=== PATIENT | male | born 1945 | race Caucasian/White ===

== ENCOUNTER 2017-04-05 21:52 | Inpatient (IN) | payer OTHER ==
[~2017-04-05] VITALS: Ht 175.3 cm; Wt 93.7 kg
[~2017-04-05 21:52] MED LIST: ASPIRIN81 M2 PO; FEOSOL325 MG PO; HYDROCODON-ACE1 EAC8 PO; LISINOPRIL-HCT1 EAC3 PO; LOVASTATIN40 MG PO; MOTRIN800 MG PO; MULTIPLE VITAM1 EAC1 PO
[2017-04-06 05:54] VITALS: BP 180/94
[2017-04-06 06:38] LABS: Estimated Average Glucose 114 mg/dL (70-123); HEMOGLOBIN A1c (GLYCOHEMOGLOB) 5.6 % HGB (Below 5.7)
[2017-04-06 06:42] LABS: ANION GAP 9 MEQ/L (2-14); CHLORIDE 103 MEQ/L (99-109); POTASSIUM 4.1 MEQ/L (3.7-5.4); SAMPLE HEMOLYSIS CHECK 0; SAMPLE ICTERIC CHECK 0; SAMPLE LIPEMIA CHECK 0; SODIUM 139 MEQ/L (136-147); TOTAL BILIRUBIN 0.7 MG/DL (0.0-1.0)
[2017-04-06 06:47] LABS: ALKALINE PHOSPHATASE 44 IU/L (3-129); GFR ESTIMATE (CALCULATED) > 59 mL/min/; GLUCOSE 114 mg/dL (70-99); UREA NITROGEN (BUN) 19 mg/dL (9-23)
[2017-04-06 11:55] VITALS: BP 150/81
[2017-04-06 15:42] VITALS: BP 129/73
[2017-04-06 18:01] VITALS: BP 136/79
[2017-04-06 20:26] VITALS: BP 132/78
[2017-04-07] VITALS (8 sets, daily range): BP systolic 100–180; BP diastolic 58–95
[2017-04-07 10:07] LABS: HEMATOCRIT 36.6 % (38.0-50.0); MCV 101.9 FL (86-99)
[2017-04-07 18:30] LABS: HEMATOCRIT 35.3 % (38.0-50.0); MCH 33.7 PG (29.0-34.0); MCHC 33.7 G/DL (30.0-36.0); MEAN PLAT.VOLUME 10.5 uM^3 (9.0-12.4); RBC DIS.WIDTH-CV 12.6 % (11.8-14.6); RBC DIS.WIDTH-SD 46.4 % (39-53); WHITE BLOOD COUNT 8.9 K/uL (4.1-10.2)
[2017-04-07 18:35] LABS: PLATELET COUNT 141 K/uL (156-360); RED BLOOD COUNT 3.53 M/uL (4.00-5.50)
[2017-04-07 18:47] LABS: ALKALINE PHOSPHATASE 33 IU/L (3-129); ANION GAP 8 MEQ/L (2-14); CHLORIDE 103 MEQ/L (99-109); GFR ESTIMATE (CALCULATED) > 59 mL/min/; GLUCOSE 112 mg/dL (70-99); MAGNESIUM 1.5 mg/dl (1.3-2.7); SAMPLE HEMOLYSIS CHECK 0; SAMPLE ICTERIC CHECK 0; SAMPLE LIPEMIA CHECK 0; SODIUM 134 MEQ/L (136-147); TOTAL BILIRUBIN 0.6 MG/DL (0.0-1.0); UREA NITROGEN (BUN) 17 mg/dL (9-23)
[2017-04-08 05:04] VITALS: BP 153/79
[2017-04-08 05:30] LABS: HEMATOCRIT 33.7 % (38.0-50.0); MCH 33.5 PG (29.0-34.0); MCHC 33.8 G/DL (30.0-36.0); MCV 99.1 FL (86-99); MEAN PLAT.VOLUME 10.6 uM^3 (9.0-12.4); PLATELET COUNT 139 K/uL (156-360); RBC DIS.WIDTH-CV 12.4 % (11.8-14.6); RBC DIS.WIDTH-SD 45.5 % (39-53); WHITE BLOOD COUNT 8.8 K/uL (4.1-10.2)
[2017-04-08 06:02] LABS: ALKALINE PHOSPHATASE 31 IU/L (3-129); ANION GAP 11 MEQ/L (2-14); CHLORIDE 103 MEQ/L (99-109); GFR ESTIMATE (CALCULATED) > 59 mL/min/; GLUCOSE 118 mg/dL (70-99); SAMPLE HEMOLYSIS CHECK 0; SAMPLE ICTERIC CHECK 0; SAMPLE LIPEMIA CHECK 0; SODIUM 136 MEQ/L (136-147); UREA NITROGEN (BUN) 12 mg/dL (9-23)
[2017-04-08 06:22] LABS: TOTAL BILIRUBIN 0.8 MG/DL (0.0-1.0)
[2017-04-08 07:16] LABS: ADD MIUA? YES; BILIRUBIN NEGATIVE; BLOOD MODERATE; COLOR YELLOW ((YELLOW)); GLUCOSE (STRIP) NEGATIVE; KETONES NEGATIVE; LEUKOCYTES NEGATIVE; NITRITE NEGATIVE; PROTEIN (STRIP) NEGATIVE; SPECIFIC GRAVITY 1.012 (1.000-1.030); UROBILINOGEN 0.2 MG/DL (0.2-1.0)
[2017-04-08 07:23] LABS: BACTERIA NONE SEEN /HPF; EPITHELIAL CELLS NONE SEEN /HPF; MUCUS NONE SEEN /LPF; RED BLOOD CELLS 15-20 /HPF (0-5); UCUL ADDED? NO; WHITE BLOOD CELLS NONE SEEN /HPF (0-5)
[2017-04-08 08:23] VITALS: BP 140/70
[2017-04-08 12:30] VITALS: BP 130/73
[2017-04-08 16:16] VITALS: BP 138/70
[2017-04-08 20:17] VITALS: BP 127/62
[2017-04-08 23:19] VITALS: BP 116/69
[2017-04-09 04:29] VITALS: BP 146/81
[2017-04-09 07:22] VITALS: BP 119/67
[2017-04-09 15:56] VITALS: BP 130/64
[2017-04-09 20:00] VITALS: BP 126/64
[2017-04-09 23:08] VITALS: BP 137/65
[2017-04-10 04:10] VITALS: BP 141/73
[2017-04-10 07:44] VITALS: BP 131/70
[2017-04-10] MEDS ORDERED: TYLENOL REGULA325 MG PO (08:50)
[2017-04-10] MEDS ORDERED: SENNA PLUS TAB1 EACH PO (08:51)
[2017-04-10] MEDS ORDERED: ELIQUIS2.5 MG PO (08:52)
[2017-04-10] MEDS ORDERED: OXYCODONE HCL5 MG PO (08:54)
[2017-04-10 11:44] VITALS: BP 134/90
[2017-04-10 12:48] LABS: POINT-OF-CARE METER ID UU14188577
[2017-04-10 14:07] LABS: HEMATOCRIT 32.6 % (38.0-50.0); MCHC 33.1 G/DL (30.0-36.0); MCV 99.7 FL (86-99); PLATELET COUNT 220 K/uL (156-360); RBC DIS.WIDTH-CV 12.4 % (11.8-14.6); RBC DIS.WIDTH-SD 45.3 % (39-53); RED BLOOD COUNT 3.27 M/uL (4.00-5.50); WHITE BLOOD COUNT 9.8 K/uL (4.1-10.2)
[2017-04-10 14:17] LABS: ANION GAP 11 MEQ/L (2-14); CHLORIDE 102 MEQ/L (99-109); GFR ESTIMATE (CALCULATED) > 59 mL/min/; GLUCOSE 104 mg/dL (70-99); POTASSIUM 4.2 MEQ/L (3.7-5.4); SAMPLE HEMOLYSIS CHECK 0; SAMPLE ICTERIC CHECK 0; SAMPLE LIPEMIA CHECK 0; SODIUM 136 MEQ/L (136-147); UREA NITROGEN (BUN) 27 mg/dL (9-23)
[2017-04-10 15:12] VITALS: BP 139/88
[2017-04-10 20:18] VITALS: BP 140/72
[2017-04-11 00:07] VITALS: BP 130/59
[2017-04-11 07:14] LABS: BASOPHIL COUNT 0.1 K/uL (0-0.1); EOSINOPHIL (%) 0.8 % (0-5); EOSINOPHIL COUNT 0.1 K/uL (0-0.3); HEMATOCRIT 29.9 % (38.0-50.0); IMMATURE GRANULOCYTE (%) 0.3 % (0.0-0.7); INSTRUMENT ABS NEUTROPHIL CT 5.9 K/uL; LYMPHOCYTE COUNT 1.6 K/uL (1.0-2.8); MCH 34.9 PG (29.0-34.0); MCHC 34.1 G/DL (30.0-36.0); MCV 102.4 FL (86-99); MEAN PLAT.VOLUME 10.3 uM^3 (9.0-12.4); MONOCYTE (%) 16.5 % (3-12); MONOCYTE COUNT 1.5 K/uL (0-0.8); NEUTROPHIL (%) 64.9 % (45-76); NEUTROPHIL COUNT 5.9 K/uL (1.8-6.4); PLATELET COUNT 256 K/uL (156-360); RBC DIS.WIDTH-CV 12.7 % (11.8-14.6); RBC DIS.WIDTH-SD 47.7 % (39-53); RED BLOOD COUNT 2.92 M/uL (4.00-5.50); WHITE BLOOD COUNT 9.2 K/uL (4.1-10.2)
[2017-04-11 07:45] VITALS: BP 147/99
[2017-04-11 07:45] LABS: ALKALINE PHOSPHATASE 49 IU/L (3-129); ANION GAP 10 MEQ/L (2-14); CHLORIDE 105 MEQ/L (99-109); GFR ESTIMATE (CALCULATED) > 59 mL/min/; GLUCOSE 115 mg/dL (70-99); POTASSIUM 4.2 MEQ/L (3.7-5.4); SAMPLE HEMOLYSIS CHECK 0; SAMPLE ICTERIC CHECK 0; SAMPLE LIPEMIA CHECK 0; SODIUM 138 MEQ/L (136-147); TOTAL BILIRUBIN 0.8 MG/DL (0.0-1.0); UREA NITROGEN (BUN) 28 mg/dL (9-23)
[2017-04-11 07:46] LABS: MAGNESIUM 2.2 mg/dl (1.3-2.7)
[2017-04-11 17:17] VITALS: BP 138/72
[2017-04-11 23:46] VITALS: BP 118/57
[2017-04-12 06:55] LABS: BASOPHIL COUNT 0.1 K/uL (0-0.1); EOSINOPHIL (%) 0.9 % (0-5); EOSINOPHIL COUNT 0.1 K/uL (0-0.3); HEMATOCRIT 29.9 % (38.0-50.0); IMMATURE GRANULOCYTE (%) 0.3 % (0.0-0.7); INSTRUMENT ABS NEUTROPHIL CT 6.7 K/uL; MCH 32.9 PG (29.0-34.0); MCHC 32.4 G/DL (30.0-36.0); MCV 101.4 FL (86-99); MEAN PLAT.VOLUME 9.8 uM^3 (9.0-12.4); MONOCYTE (%) 11.3 % (3-12); NEUTROPHIL (%) 75.2 % (45-76); NEUTROPHIL COUNT 6.7 K/uL (1.8-6.4); PLATELET COUNT 269 K/uL (156-360); RBC DIS.WIDTH-CV 12.4 % (11.8-14.6); RBC DIS.WIDTH-SD 46.5 % (39-53); RED BLOOD COUNT 2.95 M/uL (4.00-5.50); WHITE BLOOD COUNT 8.9 K/uL (4.1-10.2)
[2017-04-12 07:20] LABS: ALKALINE PHOSPHATASE 50 IU/L (3-129); ANION GAP 11 MEQ/L (2-14); CHLORIDE 108 MEQ/L (99-109); GFR ESTIMATE (CALCULATED) > 59 mL/min/; GLUCOSE 119 mg/dL (70-99); SAMPLE HEMOLYSIS CHECK 0; SAMPLE ICTERIC CHECK 0; SAMPLE LIPEMIA CHECK 0; SODIUM 140 MEQ/L (136-147); TOTAL BILIRUBIN 0.7 MG/DL (0.0-1.0); UREA NITROGEN (BUN) 23 mg/dL (9-23)
[2017-04-12 08:01] VITALS: BP 133/67
[2017-04-12 15:08] VITALS: BP 161/77
[2017-04-12 23:39] VITALS: BP 141/71
[2017-04-13 06:44] LABS: BASOPHIL COUNT 0.1 K/uL (0-0.1); EOSINOPHIL (%) 1.2 % (0-5); EOSINOPHIL COUNT 0.1 K/uL (0-0.3); HEMATOCRIT 29.9 % (38.0-50.0); IMMATURE GRANULOCYTE (%) 0.3 % (0.0-0.7); INSTRUMENT ABS NEUTROPHIL CT 7.2 K/uL; LYMPHOCYTE COUNT 1.3 K/uL (1.0-2.8); MCH 32.8 PG (29.0-34.0); MCHC 32.1 G/DL (30.0-36.0); MEAN PLAT.VOLUME 10.4 uM^3 (9.0-12.4); MONOCYTE (%) 10.7 % (3-12); NEUTROPHIL (%) 73.7 % (45-76); NEUTROPHIL COUNT 7.2 K/uL (1.8-6.4); PLATELET COUNT 341 K/uL (156-360); RBC DIS.WIDTH-CV 12.6 % (11.8-14.6); RBC DIS.WIDTH-SD 47.1 % (39-53); RED BLOOD COUNT 2.93 M/uL (4.00-5.50); WHITE BLOOD COUNT 9.7 K/uL (4.1-10.2)
[2017-04-13 07:14] LABS: ALKALINE PHOSPHATASE 66 IU/L (3-129); ANION GAP 10 MEQ/L (2-14); CHLORIDE 108 MEQ/L (99-109); GFR ESTIMATE (CALCULATED) > 59 mL/min/; GLUCOSE 115 mg/dL (70-99); POTASSIUM 4.3 MEQ/L (3.7-5.4); SAMPLE HEMOLYSIS CHECK 0; SAMPLE ICTERIC CHECK 0; SAMPLE LIPEMIA CHECK 0; SODIUM 141 MEQ/L (136-147); TOTAL BILIRUBIN 0.7 MG/DL (0.0-1.0); UREA NITROGEN (BUN) 19 mg/dL (9-23)
[2017-04-13 08:10] VITALS: BP 148/83
[2017-04-13 10:27] LABS: LIPASE 46 U/L (1.0-51.0)
[2017-04-13 10:54] LABS: INTER. NORMALIZED RATIO 1.5
[2017-04-13 10:55] LABS: PROTHROMBIN TIME 16.9 SEC (10.2-12.9)
[2017-04-13 15:49] VITALS: BP 136/81
[2017-04-13 23:50] VITALS: BP 141/69
[2017-04-14 06:46] LABS: BASOPHIL COUNT 0.1 K/uL (0-0.1); EOSINOPHIL COUNT 0.2 K/uL (0-0.3); HEMATOCRIT 30.7 % (38.0-50.0); IMMATURE GRANULOCYTE (%) 0.4 % (0.0-0.7); INSTRUMENT ABS NEUTROPHIL CT 7.5 K/uL; LYMPHOCYTE COUNT 1.5 K/uL (1.0-2.8); MCH 34.1 PG (29.0-34.0); MCHC 33.6 G/DL (30.0-36.0); MCV 101.7 FL (86-99); MONOCYTE (%) 8.8 % (3-12); MONOCYTE COUNT 0.9 K/uL (0-0.8); NEUTROPHIL (%) 73.7 % (45-76); NEUTROPHIL COUNT 7.5 K/uL (1.8-6.4); PLATELET COUNT 390 K/uL (156-360); RBC DIS.WIDTH-CV 12.7 % (11.8-14.6); RBC DIS.WIDTH-SD 47.6 % (39-53); RED BLOOD COUNT 3.02 M/uL (4.00-5.50); WHITE BLOOD COUNT 10.1 K/uL (4.1-10.2)
[2017-04-14 07:18] LABS: ALKALINE PHOSPHATASE 76 IU/L (3-129); ANION GAP 11 MEQ/L (2-14); CHLORIDE 107 MEQ/L (99-109); GFR ESTIMATE (CALCULATED) > 59 mL/min/; GLUCOSE 116 mg/dL (70-99); IRON 26 MCG/DL (35-150); POTASSIUM 4.3 MEQ/L (3.7-5.4); SAMPLE HEMOLYSIS CHECK 0; SAMPLE ICTERIC CHECK 0; SAMPLE LIPEMIA CHECK 0; SODIUM 141 MEQ/L (136-147); TOTAL BILIRUBIN 0.7 MG/DL (0.0-1.0); UREA NITROGEN (BUN) 26 mg/dL (9-23)
[2017-04-14 07:59] VITALS: BP 139/75
[2017-04-14 11:11] LABS: HBSG INDEX 0.18
[2017-04-14 11:12] LABS: ANTI-HEPATITIS A VIRUS (IGM) Nonreactive; HAV INDEX 0.11; HPCA INDEX 0.11
[2017-04-14 11:13] LABS: ANTI-HEPATITIS B CORE (IGM) Nonreactive; HBC IgM INDEX 0.06
[2017-04-14 16:41] VITALS: BP 150/67
[2017-04-14 23:01] VITALS: BP 122/73
[2017-04-15] VITALS (11 sets, daily range): BP systolic 113–138; BP diastolic 68–85
[2017-04-15 12:20] LABS: BASE EXCESS -0.5 mEq/L (-3 to +3); BICARBONATE 23.1 mEq/L (22-26); CARBOXY HGB 2.3 % (0-5); COMMENTS - BLOOD GASES A+C+; DEVICE NRBM; FI02 100 %; METHEMOGLOBIN 1.6 % (0-1.5); O2 FLOW 15 L/MIN; PCO2 34 mm Hg (35-45); PO2 269 mm Hg (80-100); SITE RR; TOTAL RESP RATE 24 resp/min; pH 7.44 (7.35-7.45)
[2017-04-15 12:26] LABS: HEMATOCRIT 34.1 % (38.0-50.0); MCH 32.7 PG (29.0-34.0); MCHC 32.3 G/DL (30.0-36.0); MCV 101.5 FL (86-99); MEAN PLAT.VOLUME 9.7 uM^3 (9.0-12.4); PLATELET COUNT 489 K/uL (156-360); RBC DIS.WIDTH-CV 12.7 % (11.8-14.6); RBC DIS.WIDTH-SD 47.5 % (39-53); RED BLOOD COUNT 3.36 M/uL (4.00-5.50); WHITE BLOOD COUNT 12.5 K/uL (4.1-10.2)
[2017-04-15 12:43] LABS: CHLORIDE 111 mEq/L (99-109); POTASSIUM 4.6 mEq/L (3.7-5.4); SODIUM 144 mEq/L (136-147)
[2017-04-15 12:45] LABS: GLUCOSE 131 mg/dL (70-99)
[2017-04-15 12:46] LABS: ANION GAP 11 MEQ/L (2-14)
[2017-04-15 12:49] LABS: GFR ESTIMATE (CALCULATED) > 59 mL/min/
[2017-04-15 12:50] LABS: UREA NITROGEN (BUN) 30 mg/dL (9-23)
[2017-04-15 12:51] LABS: TROP-I INTERPRETATION NEGATIVE; TROPONIN-I 0.09 ng/mL (0.0-0.30)
[2017-04-15 14:43] LABS: METH RESISTANT S AUREUS PCR NEGATIVE (NEGATIVE)
[2017-04-15 15:03] LABS: PROBE CHECK PASS; SPECIMEN PROCESSING CONTROL PASS
[2017-04-15 16:21] LABS: ADD MIUA? YES; BILIRUBIN NEGATIVE; BLOOD MODERATE; COLOR YELLOW ((YELLOW)); GLUCOSE (STRIP) NEGATIVE; KETONES NEGATIVE; LEUKOCYTES NEGATIVE; NITRITE NEGATIVE; PROTEIN (STRIP) NEGATIVE; SPECIFIC GRAVITY 1.025 (1.000-1.030); UROBILINOGEN 0.2 MG/DL (0.2-1.0)
[2017-04-15 16:28] LABS: BACTERIA NONE SEEN /HPF; EPITHELIAL CELLS NONE SEEN /HPF; MUCUS TRACE /LPF; UCUL ADDED? NO; WHITE BLOOD CELLS 0-5 /HPF (0-5)
[2017-04-16] VITALS (18 sets, daily range): BP systolic 108–154; BP diastolic 67–92
[2017-04-16 05:25] LABS: EOSINOPHIL (%) 0 % (0-5); HEMATOCRIT 32.5 % (38.0-50.0); IMMATURE GRANULOCYTE (%) 0.6 % (0.0-0.7); IMMATURE GRANULOCYTE COUNT 0.1 K/uL; INSTRUMENT ABS NEUTROPHIL CT 9.4 K/uL; LYMPHOCYTE COUNT 0.9 K/uL (1.0-2.8); MCH 32.6 PG (29.0-34.0); MCHC 31.4 G/DL (30.0-36.0); MCV 103.8 FL (86-99); MEAN PLAT.VOLUME 10.3 uM^3 (9.0-12.4); MONOCYTE (%) 5.7 % (3-12); MONOCYTE COUNT 0.6 K/uL (0-0.8); NEUTROPHIL (%) 85.2 % (45-76); NEUTROPHIL COUNT 9.4 K/uL (1.8-6.4); PLATELET COUNT 497 K/uL (156-360); RBC DIS.WIDTH-CV 12.4 % (11.8-14.6); RBC DIS.WIDTH-SD 47.4 % (39-53); RED BLOOD COUNT 3.13 M/uL (4.00-5.50); WHITE BLOOD COUNT 11.1 K/uL (4.1-10.2)
[2017-04-16 06:43] LABS: ANION GAP 8 MEQ/L (2-14); CHLORIDE 110 MEQ/L (99-109); CREATINE KINASE 205 IU/L (1-294); GFR ESTIMATE (CALCULATED) > 59 mL/min/; POTASSIUM 5.1 MEQ/L (3.7-5.4); SAMPLE HEMOLYSIS CHECK 0; SAMPLE ICTERIC CHECK 0; SAMPLE LIPEMIA CHECK 0; SODIUM 143 MEQ/L (136-147); UREA NITROGEN (BUN) 32 mg/dL (9-23)
[2017-04-16 06:47] LABS: GLUCOSE 248 mg/dL (70-99)
[2017-04-16 09:34] LABS: POINT-OF-CARE METER ID UU13113803
[2017-04-16 13:11] LABS: POINT-OF-CARE METER ID UU13113803
[2017-04-16 17:48] LABS: POINT-OF-CARE METER ID UU13113803
[2017-04-16 22:40] LABS: POINT-OF-CARE METER ID UU13113731
[2017-04-17] VITALS (11 sets, daily range): BP systolic 118–162; BP diastolic 70–92
[2017-04-17 01:35] LABS: POINT-OF-CARE METER ID UU14162636
[2017-04-17 05:08] LABS: INTER. NORMALIZED RATIO 1.5; PROTHROMBIN TIME 16.6 SEC (10.2-12.9)
[2017-04-17 05:10] LABS: PTT 31.6 SEC (25-37)
[2017-04-17 05:15] LABS: CHLORIDE 111 mEq/L (99-109); SODIUM 144 mEq/L (136-147)
[2017-04-17 05:16] LABS: CHLORIDE 111 mEq/L (99-109); GLUCOSE 138 mg/dL (70-99); SODIUM 144 mEq/L (136-147)
[2017-04-17 05:18] LABS: ANION GAP 9 MEQ/L (2-14); GLUCOSE 139 mg/dL (70-99)
[2017-04-17 05:19] LABS: ANION GAP 10 MEQ/L (2-14); POTASSIUM 3.5 mEq/L (3.7-5.4)
[2017-04-17 05:20] LABS: GFR ESTIMATE (CALCULATED) > 59 mL/min/; TOTAL BILIRUBIN 0.4 mg/dL (0.0-1.0)
[2017-04-17 05:21] LABS: ALKALINE PHOSPHATASE 78 IU/L (3-129); UREA NITROGEN (BUN) 30 mg/dL (9-23)
[2017-04-17 05:22] LABS: GFR ESTIMATE (CALCULATED) > 59 mL/min/
[2017-04-17 05:23] LABS: UREA NITROGEN (BUN) 29 mg/dL (9-23)
[2017-04-17 05:36] LABS: POINT-OF-CARE METER ID UU14208751
[2017-04-17 07:59] LABS: POINT-OF-CARE METER ID UU14174216
[2017-04-17 11:36] LABS: POINT-OF-CARE METER ID UU14174216
[2017-04-17 13:08] LABS: Estimated Average Glucose 117 mg/dL (70-123); HEMOGLOBIN A1c (GLYCOHEMOGLOB) 5.7 % HGB (Below 5.7)
[2017-04-17 14:34] LABS: HDL CHOLESTEROL 28 MG/DL (Desirable>=40); LDL CHOLESTEROL 111 mg/dL (Desirable<100); NON-HDL CHOLESTEROL 142 mg/dL (Desirable<160); SAMPLE HEMOLYSIS CHECK 0; SAMPLE ICTERIC CHECK 0; SAMPLE LIPEMIA CHECK 0; TOTAL CHOLESTEROL 170 mg/dL (Desirable<200); TRIGLYCERIDES 156 MG/DL (Normal: <150)
[2017-04-17 16:36] LABS: POINT-OF-CARE METER ID UU14174216
[2017-04-18 00:45] VITALS: BP 139/88
[2017-04-18 03:14] LABS: POINT-OF-CARE METER ID UU13113698
[2017-04-18 05:08] VITALS: BP 130/75
[2017-04-18 05:54] LABS: HEMATOCRIT 32.6 % (38.0-50.0); MCH 32.6 PG (29.0-34.0); MCHC 31.9 G/DL (30.0-36.0); MCV 102.2 FL (86-99); MEAN PLAT.VOLUME 11.5 uM^3 (9.0-12.4); PLATELET COUNT 505 K/uL (156-360); RBC DIS.WIDTH-CV 12.2 % (11.8-14.6); RBC DIS.WIDTH-SD 45.3 % (39-53); RED BLOOD COUNT 3.19 M/uL (4.00-5.50); WHITE BLOOD COUNT 10.9 K/uL (4.1-10.2)
[2017-04-18 06:24] LABS: ANION GAP 8 MEQ/L (2-14); CHLORIDE 110 MEQ/L (99-109); GFR ESTIMATE (CALCULATED) > 59 mL/min/; GLUCOSE 115 mg/dL (70-99); SAMPLE HEMOLYSIS CHECK 0; SAMPLE ICTERIC CHECK 0; SAMPLE LIPEMIA CHECK 0; SODIUM 140 MEQ/L (136-147); UREA NITROGEN (BUN) 22 mg/dL (9-23)
[2017-04-18 06:26] LABS: POTASSIUM 4.5 MEQ/L (3.7-5.4)
[2017-04-18 08:35] VITALS: BP 164/85
[2017-04-18 13:03] VITALS: BP 160/76
[2017-04-18 19:57] VITALS: BP 161/98
[2017-04-18 21:01] LABS: POINT-OF-CARE METER ID UU13113781
[2017-04-18 23:48] VITALS: BP 172/81
[2017-04-19 00:10] LABS: POINT-OF-CARE METER ID UU13113781
[2017-04-19 03:50] VITALS: BP 172/81
[2017-04-19 07:43] VITALS: BP 138/100
[2017-04-19 08:07] LABS: POINT-OF-CARE METER ID UU13113781
[2017-04-19 11:38] LABS: POINT-OF-CARE METER ID UU13113781
[2017-04-19 12:14] VITALS: BP 138/72
[2017-04-19 17:01] LABS: POINT-OF-CARE METER ID UU13113781
[2017-04-19 17:10] VITALS: BP 138/74
[2017-04-19 19:55] VITALS: BP 164/84
[2017-04-19 23:55] VITALS: BP 158/76
[2017-04-20 04:02] VITALS: BP 154/80
[2017-04-20 05:45] LABS: HEMATOCRIT 33.8 % (38.0-50.0); MCH 33.7 PG (29.0-34.0); MCV 99.1 FL (86-99); MEAN PLAT.VOLUME 10.4 uM^3 (9.0-12.4); PLATELET COUNT 540 K/uL (156-360); RBC DIS.WIDTH-CV 12.7 % (11.8-14.6); RBC DIS.WIDTH-SD 45.5 % (39-53); RED BLOOD COUNT 3.41 M/uL (4.00-5.50); WHITE BLOOD COUNT 15.5 K/uL (4.1-10.2)
[2017-04-20 06:27] LABS: ALKALINE PHOSPHATASE 75 IU/L (3-129); ANION GAP 9 MEQ/L (2-14); CHLORIDE 104 MEQ/L (99-109); GFR ESTIMATE (CALCULATED) > 59 mL/min/; GLUCOSE 136 mg/dL (70-99); SAMPLE HEMOLYSIS CHECK 0; SAMPLE ICTERIC CHECK 0; SAMPLE LIPEMIA CHECK 0; SODIUM 135 MEQ/L (136-147); TOTAL BILIRUBIN 0.8 MG/DL (0.0-1.0); UREA NITROGEN (BUN) 15 mg/dL (9-23)
[2017-04-20 07:05] VITALS: BP 133/80
[2017-04-20 07:53] LABS: POINT-OF-CARE METER ID UU14174216
[2017-04-20 11:15] VITALS: BP 144/82
[2017-04-20 11:38] LABS: POINT-OF-CARE METER ID UU13113781
[2017-04-20 14:57] VITALS: BP 142/84
[2017-04-20 19:46] VITALS: BP 147/86
[2017-04-21] VITALS (7 sets, daily range): BP systolic 135–185; BP diastolic 63–86
[2017-04-21 08:11] LABS: POINT-OF-CARE METER ID UU14174216
[2017-04-21 08:56] LABS: BASOPHIL COUNT 0.1 K/uL (0-0.1); EOSINOPHIL (%) 1.3 % (0-5); EOSINOPHIL COUNT 0.2 K/uL (0-0.3); HEMATOCRIT 31.8 % (38.0-50.0); IMMATURE GRANULOCYTE (%) 0.9 % (0.0-0.7); IMMATURE GRANULOCYTE COUNT 0.1 K/uL; INSTRUMENT ABS NEUTROPHIL CT 11.3 K/uL; LYMPHOCYTE COUNT 1.6 K/uL (1.0-2.8); MCH 32.3 PG (29.0-34.0); MCHC 32.7 G/DL (30.0-36.0); MCV 98.8 FL (86-99); MEAN PLAT.VOLUME 10.1 uM^3 (9.0-12.4); MONOCYTE (%) 8.3 % (3-12); MONOCYTE COUNT 1.2 K/uL (0-0.8); NEUTROPHIL (%) 77.8 % (45-76); NEUTROPHIL COUNT 11.3 K/uL (1.8-6.4); PLATELET COUNT 521 K/uL (156-360); RBC DIS.WIDTH-CV 12.5 % (11.8-14.6); RBC DIS.WIDTH-SD 45.5 % (39-53); RED BLOOD COUNT 3.22 M/uL (4.00-5.50); WHITE BLOOD COUNT 14.5 K/uL (4.1-10.2)
[2017-04-21 10:15] LABS: ALKALINE PHOSPHATASE 81 IU/L (3-129); ANION GAP 8 MEQ/L (2-14); CHLORIDE 105 MEQ/L (99-109); GFR ESTIMATE (CALCULATED) > 59 mL/min/; GLUCOSE 149 mg/dL (70-99); POTASSIUM 4.3 MEQ/L (3.7-5.4); SAMPLE HEMOLYSIS CHECK 0; SAMPLE ICTERIC CHECK 0; SAMPLE LIPEMIA CHECK 0; SODIUM 135 MEQ/L (136-147); UREA NITROGEN (BUN) 14 mg/dL (9-23)
[2017-04-21 10:18] LABS: TOTAL BILIRUBIN 0.6 MG/DL (0.0-1.0)
[2017-04-21 11:05] LABS: POINT-OF-CARE METER ID UU14174216
[2017-04-21 16:27] LABS: POINT-OF-CARE METER ID UU14174216
[2017-04-21 21:22] LABS: POINT-OF-CARE METER ID UU14174216
[2017-04-22 04:17] VITALS: BP 132/67
[2017-04-22 05:40] LABS: BASOPHIL COUNT 0.1 K/uL (0-0.1); EOSINOPHIL (%) 1.7 % (0-5); EOSINOPHIL COUNT 0.2 K/uL (0-0.3); HEMATOCRIT 31.3 % (38.0-50.0); IMMATURE GRANULOCYTE (%) 0.8 % (0.0-0.7); IMMATURE GRANULOCYTE COUNT 0.1 K/uL; INSTRUMENT ABS NEUTROPHIL CT 8.4 K/uL; LYMPHOCYTE COUNT 2.2 K/uL (1.0-2.8); MCH 31.7 PG (29.0-34.0); MCHC 31.9 G/DL (30.0-36.0); MCV 99.4 FL (86-99); MONOCYTE (%) 10.9 % (3-12); MONOCYTE COUNT 1.3 K/uL (0-0.8); NEUTROPHIL (%) 68.5 % (45-76); NEUTROPHIL COUNT 8.4 K/uL (1.8-6.4); PLATELET COUNT 499 K/uL (156-360); RBC DIS.WIDTH-CV 12.7 % (11.8-14.6); RBC DIS.WIDTH-SD 45.7 % (39-53); RED BLOOD COUNT 3.15 M/uL (4.00-5.50); WHITE BLOOD COUNT 12.3 K/uL (4.1-10.2)
[2017-04-22 05:56] LABS: ALKALINE PHOSPHATASE 80 IU/L (3-129); ANION GAP 9 MEQ/L (2-14); CHLORIDE 105 MEQ/L (99-109); GFR ESTIMATE (CALCULATED) > 59 mL/min/; GLUCOSE 118 mg/dL (70-99); POTASSIUM 4.1 MEQ/L (3.7-5.4); SAMPLE HEMOLYSIS CHECK 0; SAMPLE ICTERIC CHECK 0; SAMPLE LIPEMIA CHECK 0; SODIUM 136 MEQ/L (136-147); TOTAL BILIRUBIN 0.6 MG/DL (0.0-1.0); UREA NITROGEN (BUN) 15 mg/dL (9-23)
[2017-04-22 07:37] VITALS: BP 147/79
[2017-04-22 07:47] LABS: POINT-OF-CARE METER ID UU14174216
[2017-04-22 11:05] LABS: POINT-OF-CARE METER ID UU14174216
[2017-04-22 11:21] VITALS: BP 135/71
[2017-04-22 15:56] VITALS: BP 152/70
[2017-04-22 16:31] LABS: POINT-OF-CARE METER ID UU13113698
[2017-04-22 19:24] VITALS: BP 148/76
[2017-04-22 21:20] LABS: POINT-OF-CARE METER ID UU13113698
[2017-04-22 23:17] VITALS: BP 139/75
[2017-04-23 03:44] VITALS: BP 132/61
[2017-04-23 05:23] LABS: HEMATOCRIT 30.4 % (38.0-50.0); MCHC 32.2 G/DL (30.0-36.0); MCV 99.3 FL (86-99); PLATELET COUNT 492 K/uL (156-360); RBC DIS.WIDTH-CV 12.8 % (11.8-14.6); RBC DIS.WIDTH-SD 46.1 % (39-53); RED BLOOD COUNT 3.06 M/uL (4.00-5.50); WHITE BLOOD COUNT 12.1 K/uL (4.1-10.2)
[2017-04-23 05:44] LABS: ANION GAP 7 MEQ/L (2-14); CHLORIDE 104 MEQ/L (99-109); GFR ESTIMATE (CALCULATED) > 59 mL/min/; GLUCOSE 114 mg/dL (70-99); SAMPLE HEMOLYSIS CHECK 0; SAMPLE ICTERIC CHECK 0; SAMPLE LIPEMIA CHECK 0; SODIUM 136 MEQ/L (136-147); UREA NITROGEN (BUN) 14 mg/dL (9-23)
[2017-04-23 09:03] VITALS: BP 138/69
[2017-04-23 11:58] VITALS: BP 138/82
[2017-04-23] MEDS ORDERED: ATORVASTATIN CA80 MG PO (12:29)
[2017-04-23] MEDS ORDERED: ELIQUIS5 MG PO (12:29)
[2017-04-23] MEDS ORDERED: TYLENOL REGULA325 MG PO (12:30)
[2017-04-23] MEDS ORDERED: LOPRESSOR25 MG PO (12:30)
[2017-04-23] MEDS ORDERED: ASPIR-LOW81 MG PO (12:30)
[2017-04-23] MEDS ORDERED: DOCUSATE SODIU100 MG PO (12:31)
[2017-04-23] MEDS ORDERED: ALPRAZOLAM0.5 MG PO (12:33)
[2017-04-23] MEDS ORDERED: HYDROCODON-ACE1 EAC7 PO (12:33)
[2017-04-23 16:15] LABS: BASOPHIL COUNT 0.1 K/uL (0-0.1); EOSINOPHIL (%) 1.1 % (0-5); EOSINOPHIL COUNT 0.2 K/uL (0-0.3); HEMATOCRIT 33.1 % (38.0-50.0); IMMATURE GRANULOCYTE (%) 0.5 % (0.0-0.7); IMMATURE GRANULOCYTE COUNT 0.1 K/uL; INSTRUMENT ABS NEUTROPHIL CT 10.4 K/uL; LYMPHOCYTE COUNT 1.7 K/uL (1.0-2.8); MCH 32.4 PG (29.0-34.0); MCHC 32.6 G/DL (30.0-36.0); MCV 99.4 FL (86-99); MEAN PLAT.VOLUME 10.4 uM^3 (9.0-12.4); MONOCYTE (%) 8.9 % (3-12); MONOCYTE COUNT 1.2 K/uL (0-0.8); NEUTROPHIL (%) 76.6 % (45-76); NEUTROPHIL COUNT 10.4 K/uL (1.8-6.4); PLATELET COUNT 519 K/uL (156-360); RBC DIS.WIDTH-CV 12.9 % (11.8-14.6); RBC DIS.WIDTH-SD 46.5 % (39-53); RED BLOOD COUNT 3.33 M/uL (4.00-5.50); WHITE BLOOD COUNT 13.7 K/uL (4.1-10.2)
[2017-04-23 16:31] VITALS: BP 171/82
[2017-04-23 21:10] LABS: POINT-OF-CARE METER ID UU13113781
[2017-04-24] VITALS (8 sets, daily range): BP systolic 114–156; BP diastolic 60–79
[2017-04-24 05:43] LABS: MCH 31.8 PG (29.0-34.0); MCHC 31.7 G/DL (30.0-36.0); MCV 100.3 FL (86-99); PLATELET COUNT 443 K/uL (156-360); RBC DIS.WIDTH-CV 12.9 % (11.8-14.6); RBC DIS.WIDTH-SD 47.8 % (39-53); RED BLOOD COUNT 2.99 M/uL (4.00-5.50); WHITE BLOOD COUNT 11.8 K/uL (4.1-10.2)
[2017-04-24 06:18] LABS: ANION GAP 9 MEQ/L (2-14); CHLORIDE 108 MEQ/L (99-109); GFR ESTIMATE (CALCULATED) > 59 mL/min/; GLUCOSE 100 mg/dL (70-99); POTASSIUM 3.9 MEQ/L (3.7-5.4); SAMPLE HEMOLYSIS CHECK 0; SAMPLE ICTERIC CHECK 0; SAMPLE LIPEMIA CHECK 0; SODIUM 139 MEQ/L (136-147); UREA NITROGEN (BUN) 14 mg/dL (9-23)
[2017-04-24 07:39] LABS: POINT-OF-CARE METER ID UU14174216
[2017-04-24 11:42] LABS: ADD MIUA? YES; BILIRUBIN NEGATIVE; BLOOD MODERATE; COLOR AMBER ((YELLOW)); GLUCOSE (STRIP) NEGATIVE; KETONES NEGATIVE; LEUKOCYTES MODERATE; NITRITE POSITIVE; PROTEIN (STRIP) NEGATIVE; SPECIFIC GRAVITY 1.021 (1.000-1.030); UROBILINOGEN 0.2 MG/DL (0.2-1.0)
[2017-04-24 11:45] LABS: POINT-OF-CARE METER ID UU14174216
[2017-04-24 11:58] LABS: BACTERIA 2+ /HPF; EPITHELIAL CELLS RARE /HPF; MUCUS 2+ /LPF; UCUL ADDED? YES; WHITE BLOOD CELLS TNTC /HPF (0-5)
[2017-04-24 20:02] LABS: C-REACTIVE PROTEIN 172.2 MG/L (0-10)
[2017-04-24 20:18] LABS: URIC ACID 4.6 mg/dL (3.1-9.2)
[2017-04-24 22:11] LABS: POINT-OF-CARE METER ID UU14117124
[2017-04-25 04:31] VITALS: BP 135/65
[2017-04-25 06:17] LABS: POINT-OF-CARE METER ID UU14117124
[2017-04-25 07:15] LABS: HEMATOCRIT 31.7 % (38.0-50.0); MCH 33.2 PG (29.0-34.0); MCHC 33.8 G/DL (30.0-36.0); MCV 98.4 FL (86-99); RBC DIS.WIDTH-CV 13.1 % (11.8-14.6); RBC DIS.WIDTH-SD 46.4 % (39-53); RED BLOOD COUNT 3.22 M/uL (4.00-5.50); WHITE BLOOD COUNT 10.3 K/uL (4.1-10.2)
[2017-04-25 07:27] LABS: ALKALINE PHOSPHATASE 87 IU/L (3-129); ANION GAP 10 MEQ/L (2-14); CHLORIDE 114 MEQ/L (99-109); DIRECT BILIRUBIN 0.1 mg/dL (0.0-0.3); GFR ESTIMATE (CALCULATED) > 59 mL/min/; GLUCOSE 167 mg/dL (70-99); POTASSIUM 4.7 MEQ/L (3.7-5.4); SAMPLE HEMOLYSIS CHECK 1; SAMPLE ICTERIC CHECK 0; SAMPLE LIPEMIA CHECK 0; SODIUM 141 MEQ/L (136-147); TOTAL BILIRUBIN 0.4 MG/DL (0.0-1.0); UREA NITROGEN (BUN) 16 mg/dL (9-23)
[2017-04-25 07:41] VITALS: BP 132/88
[2017-04-25 07:45] VITALS: BP 173/75
[2017-04-25 08:23] LABS: EOSINOPHIL (%) 0.1 % (0-5); HEMATOLOGY COMMENT 1 SMEAR COMPATIBLE; IMMATURE GRANULOCYTE (%) 0.8 % (0.0-0.7); IMMATURE GRANULOCYTE COUNT 0.1 K/uL; INSTRUMENT ABS NEUTROPHIL CT 9.1 K/uL; LYMPHOCYTE COUNT 0.9 K/uL (1.0-2.8); MONOCYTE (%) 1.5 % (3-12); MONOCYTE COUNT 0.2 K/uL (0-0.8); NEUTROPHIL (%) 88.6 % (45-76); NEUTROPHIL COUNT 9.1 K/uL (1.8-6.4); PLAT.SUFFICIENCY ADEQUATE; PLATELET CLUMPS PRESENT - PLATELET COUNT APPEARS ADQ.
[2017-04-25 08:33] LABS: PLATELET COUNT UNABLE TO REPORT K/uL (156-360)
[2017-04-25 16:10] VITALS: BP 133/72
[2017-04-25 16:14] LABS: POINT-OF-CARE METER ID UU14117124
[2017-04-25 21:53] LABS: POINT-OF-CARE METER ID UU14117124
[2017-04-26 00:16] VITALS: BP 161/76
[2017-04-26 06:47] LABS: POINT-OF-CARE METER ID UU14117124
[2017-04-26 07:10] LABS: ANION GAP 9 MEQ/L (2-14); CHLORIDE 116 MEQ/L (99-109); GFR ESTIMATE (CALCULATED) > 59 mL/min/; GLUCOSE 161 mg/dL (70-99); POTASSIUM 4.3 MEQ/L (3.7-5.4); SAMPLE HEMOLYSIS CHECK 1; SAMPLE ICTERIC CHECK 0; SAMPLE LIPEMIA CHECK 0; SODIUM 146 MEQ/L (136-147); UREA NITROGEN (BUN) 21 mg/dL (9-23); URIC ACID 4.9 mg/dL (3.1-9.2)
[2017-04-26 08:22] VITALS: BP 144/86
[2017-04-26 11:36] LABS: POINT-OF-CARE METER ID UU14208753
[2017-04-26] MEDS ORDERED: COLCHICINE0.6 M1 PO (13:19)
[2017-04-26] MEDS ORDERED: FOLIC ACID1 MG PO (13:19)
[2017-04-26 16:21] VITALS: BP 148/82
[2017-04-26 16:35] LABS: POINT-OF-CARE METER ID UU14208753
== END 2017-04-26 17:22 | DRG 469 ==
LOC: ENRESERV 21:52 → 3WEST 04-06 05:10 → 3EAST 04-06 05:10 → 4EAST 04-06 05:10 → 4WEST 04-06 05:10 → 2SOUTH 04-06 05:10 → 3WEST 04-06 11:35 → ENRESERV 04-07 18:17 → CANRESERV 04-07 18:49 → ENRESERV 04-07 18:49 → 4EAST 04-07 19:56 → ENRESERV 04-09 20:16 → 3EAST 04-09 22:52 → CANRESERV 04-15 12:37 → ENRESERV 04-15 12:37 → 3EAST 04-15 12:54 → CANRESERV 04-15 12:55 → ENRESERV 04-15 12:55 → 4WEST 04-15 13:03 → ENRESERV 04-17 04:13 → 4EAST 04-17 05:38 → ENRESERV 04-24 11:38 → 3EAST 04-24 13:03 → 2SOUTH 04-06 10:47
PROVIDERS: Family Medicine; Hospitalist; Internal Medicine; Internal Medicine Critical Care Medicine; Orthopaedic Surgery; Physician Assistant; Specialist; Student in an Organized Health Care Education/Training Program
PROC: 0SRD0J9 Replacement of Left Knee Joint with Synthetic Substitute, Cemented, Open Approach (ICD-10-PCS; principal; 2017-04-06)
PROC: HZ2ZZZZ Detoxification Services for Substance Abuse Treatment (ICD-10-PCS; 2017-04-07)
DX: M17.12 Unilateral primary osteoarthritis, left knee (principal); G92 Toxic encephalopathy; F10.231 Alcohol dependence with withdrawal delirium; A41.9 Sepsis, unspecified organism; I63.9 Cerebral infarction, unspecified; G81.91 Hemiplegia, unspecified affecting right dominant side; R47.01 Aphasia; E87.1 Hypo-osmolality and hyponatremia; E87.2 Acidosis; E87.6 Hypokalemia; E78.5 Hyperlipidemia, unspecified; I10 Essential (primary) hypertension; I48.0 Paroxysmal atrial fibrillation; I73.9 Peripheral vascular disease, unspecified; K80.20 Calculus of gallbladder without cholecystitis without obstruction; M10.9 Gout, unspecified; M65.9 Synovitis and tenosynovitis, unspecified; R13.10 Dysphagia, unspecified; E83.51 Hypocalcemia; G47.33 Obstructive sleep apnea (adult) (pediatric); Z96.651 Presence of right artificial knee joint; E83.10 Disorder of iron metabolism, unspecified; F29 Unspecified psychosis not due to a substance or known physiological condition; D53.9 Nutritional anemia, unspecified; K70.0 Alcoholic fatty liver; R65.10 Systemic inflammatory response syndrome (SIRS) of non-infectious origin without acute organ dysfunction; Y90.9 Presence of alcohol in blood, level not specified; Z88.0 Allergy status to penicillin; Z88.5 Allergy status to narcotic agent; Z79.01 Long term (current) use of anticoagulants; Z79.82 Long term (current) use of aspirin; Z90.5 Acquired absence of kidney; Z80.0 Family history of malignant neoplasm of digestive organs; Z80.8 Family history of malignant neoplasm of other organs or systems; J95.89 Other postprocedural complications and disorders of respiratory system, not elsewhere classified; J98.11 Atelectasis
CPT/HCPCS: 36600; 70450; 70551; 71010; 73200; 73564; 76705; 80048; 80048 91; 80053; 80061; 80074; 80076; 81003; 82140; 82550; 82607; 82746; 82803; 82948; 83036; 83540; 83605; 83690; 83735; 84443; 84466; 84484; 84550; 85014; 85018; 85025; 85027; 85610; 85730; 86140; 87040; 87086; 87641; 92526 GN; 92610 GN; 93005; 93880; 94799; 97530 GO; 97530 GP; C1713; J0131; J0690; J0696; J1200; J1650; J1815; J1885; J1956; J2060; J2250; J2310; J2405; J2920; J2930; J3010; J3370; J7030; J7050; J7120; L1820; S0020; S0028